=== PATIENT | female | born 1985 | race Caucasian/White ===

== ENCOUNTER 2021-01-14 12:28 | Emergency (ER) | payer OTHER ==
[~2021-01-14] VITALS: Ht 165.1 cm; Wt 62.3 kg
--- NOTE | 2021-01-14 12:30 | PHYS DOC ---
Adult General Chief Complaint Chief Complaint: ALLERGIC REACTION HPI HPI Patient is a 35-year-old female who presents to the emergency department via EMS transport stating she was at a COVID-19 vaccine clinic today, received her second dose of MODERNA COVID-19 virus vaccine intramuscular injection to the right deltoid at approximately 1130 today. Patient states within 15 minutes she felt an acute onset of headache, sore neck, dizziness, shortness of breath, "I felt my throat closing off ", a healthcare provider injected 0.3 mg epinephrine to the right medial thigh intramuscular injection/EpiPen. Patient also immediately used her albuterol metered-dose inhaler, 1 puff. Patient states within minutes she started to feel much better. Patient states she currently has no symptoms of this reaction since transported to the emergency department. Patient does however complain of pain at the right deltoid at the vaccine injection site, right lateral thigh pain at the epinephrine/EpiPen injection site. Patient denies recent fever or chills, headaches, cough, nasa l/throat/chest congestion, sore throat, sore neck, dizziness, shortness of breath, chest pains, or chest palpitations. Patient denies any abdominal pain, nausea, vomiting, or diarrhea. Patient Metallic taste, or impending doom feeling. patient states she is currently on her menstrual cycle which started today. Patient denies any other physical complaints or physical concerns. P atient reports having a flu vaccine this season, and allergy to penicillin and sulfa, takes Advair twice daily and albuterol as needed MDI inhalers, takes no other prescription medications. Patient denies any other physical complaints or physical concerns. Review of Systems Review of Systems 14 body systems of review of systems have been reviewed. See HPI for pertinent positives and negative responses, otherwise all other systems are negative, nonpertinent or noncontributory. Current Medications Current Medications Patient reports taking Advair inhaler twice daily, albuterol MDI as needed. Allergies Allergies Patient reports an allergy to penicillin and sulfa medications. Physical Exam Physical Exam Constitutional: Well developed, well nourished, no acute distress, non-toxic appearance. 35-year-old female in no apparent distress. Vital signs within normal limits. HENT: Normocephalic, atraumatic, bilateral external ears normal, oropharynx moist, no oral exudates, nose normal. No Flushing, laryngeal edema, generalized hives/urticaria, angioedema of the tongue or lips, cutaneous/conjunctival pruritus, or swelling of [id number] appreciated. No trismus, no drooling appreciated. Eyes: PERRLA, EOMI, conjunctiva normal, no discharge. Neck: Normal range of motion, no tenderness, supple, no stridor. No meningismus signs, no nuchal rigidity, no C-spine tenderness appreciated. Cardiovascular:Heart rate regular rhythm, no murmur, heart sounds S1-S2 to auscultation. No dizziness, weakness, syncopal episode, hypotonia, palpitations, tachycardia, or hypotension appreciated. Lungs & Thorax: Bilateral breath sounds clear to auscultation, no adventitious lung sounds appreciated. There was no nasal congestion, throat tightness, voice change, wheezing, shortness of breath, cough, hoarseness, or stridor appreciated. No bronchospasm signs appreciated. Abdomen: Bowel sounds normal, soft, no tenderness, no masses, no pulsatile masses. GI: No complaints of dysphagia, no signs of N/V, no diarrhea, no bloating, no cramps. Skin: Warm, dry, no erythema, no rash. No urticaria of the palms, soles, inner thighs, no generalized erythema, no pruritic complaints. Back: No tenderness, no CVA tenderness. Extremities: No tenderness, no cyanosis, no clubbing, ROM intact, no edema. Distal cap refill less than 2 seconds. Moves all extremities well. Neurologic: Alert and oriented X 3, normal motor function, normal sensory function, no focal deficits noted. Psychologic: Affect normal, judgement normal, mood normal. EKG EKG [] Radiology/Procedures Radiology/Procedures [] Heart Score C/O Chest Pain: No Risk Factors: Risk Factors: DM, Current or recent (<one month) smoker, HTN, HLP, family history of CAD, obesity. Risk Scores: Risk Factors: DM, Current or recent (<one month) smoker, HTN, HLP, family history of CAD, obesity. Course & Med Decision Making Course & Med Decision Making Pertinent Labs and Imaging studies reviewed. (See chart for details) 35-year-old female, vital signs reviewed, presents emergency department concerning for allergic reaction versus anaphylactic episode within minutes of receiving the Moderna COVID-19 vaccination. Patient states she was immediately treated onsite by a medical provider with an EpiPen injection to the right lateral thigh. Also self treated with her albuterol MDI, 1 puff. Patient states within minutes she started feeling better. Patient was transported to this emergency department via EMS. Patient's physical examination was unremarkable, most likely anaphylactic episode versus acute allergic reaction to MODERNA COVID-19 vaccination injection resolved with immediate medical treatment. ED plan, will give p.o. prednisone, p.o. Pepcid, p.o. Benadryl, mo nitor cardiac/pulse ox/blood pressure for approximately 4 hours to assess for exacerbation of allergic reaction/anaphylactic episode. Patient is amenable to this plan. After several reexaminations of the patient, the patient remained in no apparent distress, nontoxic in appearance, no exacerbation of allergic reaction or anaphylactic episode appreciated. Both patient and I made a joint decision that it is safe for her to go home with strict return to emergency department precautions, will give prescription for prednisone 20 mg for 5 days, patient will take an additional Benadryl this evening, Pepcid dose this evening, and again treat with Pepcid in the morning. Patient will follow up with primary care physician tomorrow for reexamination. Diagnosis: Anaphylactic attack versus acute allergic reaction most likely to IM injection of MODERNA COVID-19 vaccine. Very low probability of an environmental reaction or idiopathic reaction. Very low likelihood of angioedema to ROSINA inhibitors as patient does not ingest ROSINA inhibitors, very low likelihood of malignant carcinoid syndrome, mastocytosis, pheochromocytoma, or asthma. Dragon Disclaimer Dragon Disclaimer This electronic medical record was generated, in whole or in part, using a voice recognition dictation system. Departure Departure: Impression: Primary Impression: Allergic reaction Additional Impression: Anaphylaxis Disposition: 01 DC HOME SELF CARE/HOMELESS Condition: GOOD Patient Instructions: Anaphylactic Reaction Additional Instructions: You were seen today in the emergency department for an anaphylactic attack symptoms, this was most likely related to your MODERNA COVID-19 vaccine today. Please take an additional 25 mg [id number] Benadryl at home tonight along with an additional 20 mg Pepcid tonight. Please repeat both medications in the morning. Please return to the emergency department immediately for return of signs and symptoms of anaphylactic attack and or allergic reaction symptoms. Please see your doctor at the [facility] for follow-up tomorrow. I have given you a prescription for the EpiPen. EMERGENCY DEPARTMENT GENERAL DISCHARGE INSTRUCTIONS Thank you for coming to [facility] (ED) today and trusting us with you care. We trust that you had a positivie experience in our Emergency Department. If you wish to speak to the department management, you may call the director at [phone]. YOUR FOLLOW UP INSTRUCTIONS ARE FOLLOWS: 1. Do you have a private Doctor? If you do not have a private doctor, please ask for a resource list of physicians or clinics that may be able to assist you with follow up care. 2. The Emergency Physician has interpreted your x-rays. The X-Ray specialist will also review them. If there is a change in the findings, you will be notified in 48 hours when at all possible. 3. A lab test or culture has been done, your results will be reviewed and you will be notified if you need a change in treatment. ADDITIONAL INSTRUCTIONS AND INFORMATION: 1. Your care today has been supervised by a physician who is specially trained in emergency care. Many problems require more than one evaluation for a complete diagnosis and treatment. We recommend that you schedule your follow up appointment as recommended to ensure complete treatment of you illness or injury. If you are unable to obtain follow up care and continue to have a problem, or if your condition worsens, we recommend that you return to the ED. 2. We are not able to safely determine your condition over the phone nor are we able to give sound medical advice over the phone. For these safety reasons, if you call for medical advice we will ask you to come to the ED for further evaluation. 3. If you have any questions regarding these discharge instructions please call the ED at [phone]. SAFETY INFORMATION: In the interest of safety, wellness, and injury prevention; we encourage you to wear your sealbelt, if you smoke; quite smoking, and we encourage family to use a protective helmet for bicycling and other sporting events that present an increased risk for head injury. IF YOUR SYMPTOMS WORSEN OR NEW SYMPTOMS DEVELOP, OR YOU HAVE CONCERNS ABOUT YOUR CONDITION; OR IF YOUR CONDITION WORSENS WHILE YOU ARE WAITING FOR YOUR FOLLOW UP APPOINTMENT; EITHER CONTACT YOUR PRIMARY CARE DOCTOR, THE PHYSICIAN WHOSE NAME AND NUMBER YOU WERE GIVEN, OR RETURN TO THE ED IMMEDIATELY. Scripts Prednisone (PREDNISONE) 20 Mg Tablet 1 TAB PO DAILY for ALLERGY, #5 TAB 0 Refills Prov: BRANDT CAIN APRN 01/14/21 Epinephrine (Epipen) 0.3 Mg/0.3 Ml Auto.injct 0.3 MG IM UD for SEVERE ALLERGIC REACTION, #1 SYR 3 Refills Prov: BRANDT CAIN APRN 01/14/21 Problem Qualifiers Primary Impression: Allergic reaction Encounter type: initial encounter Qualified Codes: T78.40XA - Allergy, unspecified, initial encounter Additional Impression: Anaphylaxis Encounter type: initial encounter Qualified Codes: T78.2XXA - Anaphylactic shock, unspecified, initial encounter BRANDT CAIN APRN Jan 14, 2021 12:30
[2021-01-14] MEDS: predniSONE 20 MG TABLET PO ONE (13:12)
[2021-01-14] MEDS: FAMOTIDINE 20 MG TABLET PO ONE (13:12)
[2021-01-14] MEDS: diphenhydrAMINE HCL 25 MG CAPSULE PO ONE (13:13)
[2021-01-14 13:28] VITALS: BP 121/70
[2021-01-14] MEDS ORDERED: EPIN0.3A3 IM (15:53)
[2021-01-14] MEDS ORDERED: PRED20TA PO (16:11)
== END 2021-01-14 16:00 | disposition home or self-care (01) ==
LOC: ER 12:28
DX: T80.52XA Anaphylactic reaction due to vaccination, initial encounter (principal); Z88.0 Allergy status to penicillin; Y84.8 Other medical procedures as the cause of abnormal reaction of the patient, or of later complication, without mention of misadventure at the time of the procedure; Y92.89 Other specified places as the place of occurrence of the external cause
CPT/HCPCS: 99284; J7512; Q0163